=== PATIENT | female | born 1950 | race Caucasian/White ===

== ENCOUNTER → 2018-12-11 07:38 | Outpatient (CLI) | payer MEDICARE, SELFPAY ==
--- NOTE | 2018-12-11 | DI.MRI.S_ITS ---
PROCEDURE: MR LUMBAR SPINE WO CON INDICATIONS: Radiculopathy, lumbar region TECHNIQUE: Noncontrast sagittal T1 spin echo and T2 fast echo, sagittal STIR, axial T1 and T2 fast spin echo through the lumbar spine. In cases with scoliosis, additional coronal T2 fast spin echo may be performed. COMPARISON: None. FINDINGS: Image quality: Excellent. Alignment and Curvature: Moderate dextroconvex scoliotic curvature is seen. There is minimal retrolisthesis at L1-L2, minimal anterolisthesis at L2-L3, minimal retrolisthesis of L3-L4, and minimal retrolisthesis at L5-S1. Bone Marrow: Marrow is of normal overall signal. No acute vertebral body compression fractures. Spinal Cord: Conus medullaris terminates at the L1 level. Visualized cord demonstrates normal signal and size. Paraspinous Soft Tissues: No paravertebral masses. T12-L1: Moderate loss of disc height is seen. Loss of disc signal is seen. Mild to moderate disc bulge is seen. Mild facet joint hypertrophy is seen. There is moderate left-sided and mild right-sided neural foraminal narrowing seen. Mild central canal narrowing is seen. L1-L2: Moderate to severe loss of disc height and disc signal are seen on the left. Moderate generalized disc bulge is seen. [id number] facet hypertrophy is seen. There is moderate to severe left-sided and no significant right-sided neural foraminal narrowing seen. Mild central canal narrowing is seen. L2-L3: Mild loss of disc height is seen. Loss of disc signal is seen. Mild generalized disc bulge is seen. Moderate facet joint hypertrophy is seen. There is associated moderate hypertrophy of the ligamentum flavum. Moderate central canal narrowing is seen. This is exacerbated by the presence of prominent epidural fat. L3-L4: Moderate loss of disc height is seen. Loss of disc signal is seen. Moderate disc bulge is seen, which is eccentric to the left. There is mild to moderate left-sided and mild right-sided neural foraminal narrowing seen. Mild central canal narrowing is seen. L4-L5: Moderate loss of disc height is seen. Loss of disc signal is seen. Moderate to prominent disc bulge is seen, which is eccentric to the right. Moderate to prominent facet hypertrophy is seen. There is moderate left-sided and severe right-sided neural foraminal narrowing seen. There is impingement seen upon the exiting right L4 nerve root. Moderate central canal narrowing is seen. L5-S1: At least moderate loss of disc height and disc signal can be seen. Moderate generalized disc bulge is seen. Uioq-rf-[id number] facet hypertrophy is seen. There is at least moderate bilateral neural foraminal narrowing seen, left worse than right. There is a degree of impingement seen upon the exiting nerve roots. Minimal central canal narrowing is seen. IMPRESSION: Dextroconvex scoliosis and multiple levels of degenerative change are seen. The degenerative changes are overall most prominent at the L4-L5 level, where there is severe right-sided neural foraminal narrowing and associated nerve root impingement. Dictated by: Darwin Quan M.D. on 12/11/2018 at 10:41 Approved by: Darwin Quan M.D. on 12/11/2018 at 10:48
== END ==
PROVIDERS: Visit Provider Orthopaedic Surgery
DX: M47.26 Other spondylosis with radiculopathy, lumbar region (principal); M48.061 Spinal stenosis, lumbar region without neurogenic claudication; M41.9 Scoliosis, unspecified
CPT/HCPCS: 72148

== ENCOUNTER 2019-09-18 10:13 | Inpatient (IN) | payer MEDICARE, SELFPAY ==
[2019-09-05 10:04] VITALS: BMI 27.9
[2019-09-18] VITALS (13 sets, daily range): BP systolic 136–167; BP diastolic 76–87; PULSE 76–101; RESP 11–17; TEMP 36–36.9; O2SAT 94–99; BMI 27.9
--- NOTE | 2019-09-18 | DI.RAD.S_ITS ---
PROCEDURE: XR LUMBAR SPINE 2-3V INDICATIONS: L4-5, L5-S1 TLIF TECHNIQUE: 2 intraoperative fluoroscopic views of the lumbar spine were acquired. COMPARISON: None. FINDINGS: Intraoperative fluoroscopic images of lower lumbar spine shows transpedicular fusion at L4-S1 levels with intervertebral spacer placement at L4-5 and L5-S1 levels. IMPRESSION: Fluoroscopy guidance was provided intraoperatively for fusion of lower lumbar spine. Dictated by: Iain Rubi M.D. on 09/18/2019 at 17:31 Approved by: Iain Rubi M.D. on 09/18/2019 at 17:37
[2019-09-18] MEDS: LACTATED RINGERS 1,000 ML 42 ML IV ×2 (12:00→16:59)
--- NOTE | 2019-09-18 13:19 | PM.PREOP ---
Pre-operative Note Interval Note History & Physical reviewed/Exam performed by Physician: Yes Changes to H&P: No
[2019-09-18] MEDS: CEFAZOLIN 2 GM/100 ML FROZ.PIGGY IV ×2 (13:53→21:52)
--- NOTE | 2019-09-18 14:25 | SUR.OPER ---
Prone on spine table, head in foam head support, padded chest and pelvic supports, gel pad at knees, lower legs supported by pillows; nipples, genitalia and toes free of pressure, arms secured on foam padded arm boards at <90 degrees abduction. Tape over blanket at thigh secured to table.
[2019-09-18] MEDS: BUPIVACAINE LIPOSOME 266 MG/20 ML VIAL INJ (14:39)
[2019-09-18] MEDS: BUPIVACAINE 0.25% W/ EPI (PF) 10 ML VIAL 30 ML INJ (14:39)
--- NOTE | 2019-09-18 17:10 | P.OP_ITS ---
Operative Date/Time/Diagnoses Date of procedure: 09/18/19 Time of procedure: 14:10 Pre-op diagnosis: 1. L4-5, L5-S1 spinal stenosis 2. L4-5, L5-S1 spondylolisthesis 3. Lumbar scoliosis Post-op diagnosis: same Procedure & Clinicians Procedure: 1. L4-5, L5-S1 Postero-lateral and posterior interbody fusion 2. L4-5, L5-S1 interbody cage placement. 3. L4-5, L5-S1 decompressive laminectomy with bilateral facetecomies 4. L4-5, L5-S1 Posterior segmental instrumentation 5. Hermann of bone marrow from iliac crest 6. Utilization of microsurgical technique and operating microscope Same procedure as scheduled: Yes Indications: Patient has been having chronic back pain and worsening lumbar radiculopathy. Patient failed multiple conservative management with worsening pain weakness and numbness in her lower extremity. Patient has been having difficulty performing activity of daily living. After discussing risks benefits of treatment options, patient elected proceed with surgery. Surgeon: Amelia Cruz Digital Computer Systems Analyst: Mary Arnold Click Yes if Unassisted: No Operative Notes Closure Type: primary Specimen(s): none sent Prosthetic devices, grafts, tissues, transplants, or devices: Globus revolve screws, Rise cages Applied: catheter Estimated Blood Loss (mL): 75 Blood products transfused: none Procedure in detail: Patient was seen in the preoperative area. Risks and benefits of the surgery was discussed with the patient. Informed consent was obtained from the patient and placed in the chart. Surgical site was marked. Patient was taken to the operative room. General anesthesia was administered. Prophylactic antibiotic was given to the patient less than 30 min before the incision was made. Patient was placed into a prone position on the Sterling table. Patient's back was then prepped and draped in the sterile fashion. Time- out was performed at this time. Using AP and lateral C-arm imaging the interval between L4-S1 was identified and marked on patient's back. A 2 inch incision 2 in from midline was made on the right side first. The fascia was incised in line with skin incision. Globus MARS retractors was placed inside the incision and docked onto the L4 and L5 lamina. Using microsurgical technique and operating microscope, a L4 and L5 laminectomy and L4-5 L5-S1 facetectomy was performed using a Kerrison rongeur. During the process of decompression more than 75% of bilateral L4-5 L5-S1 facets were removed in order to decompress the spinal canal and the lateral recess. The L4-5 L5-S1 level was grossly unstable after the decompression was completed and requiring the fusion procedure. The disc space at L4-5, L5-S1 was identified. And a total diskectomy was performed at L4-5, L5-S1 level. The endplates were decorticated using a rasp and shaver. The total diskectomy and decortication was performed at L4-5, L5-S1 level in order to to accomplish a L4- 5, L5-S1 fusion. The local bone from the laminectomy and facetectomy was saved for local bone grafting. After the total diskectomy and decortication was completed, Bio4 bone graft material was combined with local bone that was harvested earlier. At this time, a separate skin is incision was made over the iliac crest. A Jamshidi needle was inserted into the iliac crest through a separate skin incision. 5 cc of bone marrow aspiration was obtained through the separate skin incision using a Jamshidi needle from the iliac crest. The bone marrow aspiration was combined with local bone and the Bio4 bone grafting material. The bone grafting material was placed into the L4-5, L5-S1 interbody space along with two cages, one expandable cage at each level. The cages were expanded to their maximum height using the torque limiting screwdriver. At this time a mirror image incision was made on the left side. The fascia was incised in line with the skin incision. Globus MARS retractor was inserted and docked onto the L4-5, L5-S1 posterolateral gutter. Using the power drill, posterior-lateral decortication was performed at L4-5, L5-S1 level until bleeding cortical bone was identified. The remaining bone grafting material was placed into the L4-5 L5-S1 posterior lateral gutter he order to accomplish posterolateral fusion at the L4-5 L5-S1 levels. Using the double C-arm technique, pedicle screws were placed into the L4, L5, S1 pedicles bilaterally. This was done by placing the Jamshidi needle into the pedicles, then placing the guidewires over the Jamshidi needle, and finally placing the cannulated screws over the guidewires bilaterally. After the pedicle screws were placed, 2 titanium rods was locked into the heads of the pedicle screws using locking caps and torque limiting screwdriver. Total 6 pedicles screws were placed. After all the hardware was placed, and confirmed with AP and lateral C-arm imaging, the wound was then irrigated with sterile normal saline and packed with Ray-Fili gauze for 3 min to accomplish hemostasis. After the gauze was removed the deep fascia was closed with #1 Vicryl suture. The subcutaneous layer was closed with 2-0 Vicryl. The skin was closed with skin giovanny. Patient tolerated the procedure well. There were no complications. Complications: none Post-operative Condition: stable Disposition: PACU Plan for aftercare: admit to inpatient hospital
[2019-09-18] MEDS: HYDROMORPHONE 2 MG INJ IV (17:37)
[2019-09-18] MEDS: SODIUM CHLORIDE 0.9% 1,000 ML 100 ML IV (19:00)
[2019-09-18] MEDS: ONDANSETRON 4 MG/2 ML INJ IV (19:00)
[2019-09-18] MEDS: HYDROMORPHONE 0.5 MG INJ IV (19:07)
[2019-09-18] MEDS: OXYCODONE IR 10 MG TABLET PO (21:52)
--- NOTE | 2019-09-19 00:21 | PC.NURSE ---
Shift note: Received patient from evening shift. At time of assessment patient became acutely nauseated and vomited 150ml clear emesis, had been requesting food just prior to episode. Patient had been nauseated and vomited on evening shift after dinner and again after pudding. Changed patient's gown and cleaned patient's hands and face of emesis and provided comfort. Educated patient on post-op nausea and assured her that it's not unexpected. Patient acknowledge teaching. Patient AxOx3, able to make needs known using call light, moderate fall risk, oden patent, on 2L O2 by NC, bed alarm on and functioning.
[2019-09-19] MEDS: OXYCODONE IR 10 MG TABLET PO (02:45)
[2019-09-19 03:28] VITALS: BP 141/69; PULSE 77; RESP 15; TEMP 36.7; O2SAT 96
[2019-09-19] MEDS: SODIUM CHLORIDE 0.9% 1,000 ML 100 ML IV (05:18)
[2019-09-19] MEDS: CEFAZOLIN 2 GM/100 ML FROZ.PIGGY IV (05:26)
[2019-09-19 05:38] LABS: Hematocrit 38.6 % (36-46)
[2019-09-19 08:48] VITALS: PULSE 90; O2SAT 94
[2019-09-19 08:53] VITALS: BP 121/69; PULSE 92; RESP 16; TEMP 37.2; O2SAT 94
[2019-09-19] MEDS: OXYCODONE IR 5 MG TABLET PO ×4 (09:19→20:08)
[2019-09-19] MEDS: DOCUSATE 100 MG CAPSULE PO ×2 (09:19→09:21)
--- NOTE | 2019-09-19 09:27 | PT.IIE ---
Current Diagnoses Other secondary scoliosis, lumbar region (09/18/19) Other spondylosis with radiculopathy, lumbosacral region (09/18/19) Spinal stenosis, lumbar region without neurogenic claudication (09/18/19) Surgery Performed Operation Date: 09/18/19 13:15 Actual Procedures p L4-5, L5-S1 TLIF w/ posterior instrumentation(Not Applicable) - Amelia Cruz MD Surgical History (Last Updated 09/05/19 @ 10:17 by Sandy Lackey RN) History of bunionectomy of both great toes (Acute) Hx of tonsillectomy (Acute) Medical History (Last Updated 09/05/19 @ 10:17 by Sandy Lackey RN) Acid reflux (Acute) Arthritis (Acute) Asthma (Acute) Back pain (Acute) Cysts (Acute) Easy bruisability (Acute) Jaw fracture (Acute) Sciatica (Acute) Physical Therapy Inpatient Evaluation/Re-Eval M1 PT/OT-IP Prior Functional Status Start: 09/19/19 11:35 Freq: NEEDED Status: Active Protocol: Document 09/19/19 09:27 AB (Rec: 09/19/19 11:50 AB [id number]) Medical Review Prior Functional Status Medical History Reviewed Yes Communication able to make needs known Mobility and Gait pt stated that she is independent with all mobilities and ambulation without AD Social History Household Members spouse Living Arrangements House Number of Floors (Floors) One Floor Number of Stairs To Enter/Railing? ramp to enter Home Environment Standard Height Toilet,Walk in Shower,Ramp Home Equipment Four Wheel Walker,Straight Cane,Long Handled Shoe Horn, Food Or Baggage Handling Rampman,Grab Bars In Shower Employment Status Retired M2 PT-IP Current Condition Start: 09/19/19 11:35 Freq: NEEDED Status: Active Protocol: Document 09/19/19 09:27 AB (Rec: 09/19/19 11:50 AB [id number]) Physical Therapy Current Condition Current Condition Evaluation Date 09/19/19 Treatment Diagnosis s/p L4-S1 posterior fusion/ lami; difficulty in walking Onset Date 09/18/2019 Precautions Lumbar Precautions Log Roll,No Twisting,Limit Bending,Lifting Restriction of 10 lbs,Gait Belt above Incisional Area M3 PT-IP Subjective Start: 09/19/19 11:35 Freq: NEEDED Status: Active Protocol: Document 09/19/19 09:27 AB (Rec: 09/19/19 11:50 AB [id number]) Subjective Physical Therapy Visit Type Type Initial Evaluation Visit Start Time 09:27 Visit Stop Time 10:12 Total Visit Minutes 45 Number of IMAGING CLERK Visits 0 Physical Therapy Visit Comments Patient Comments pt agreeable to do PT Therapy Pain Assessment Pain When Pain Assessed At Rest Pain Present Pain Present Pain Reported Location Tops of thighs Intensity 6 Scale Used Numeric (1 - 10) Pain Management Techniques Distraction,Timing of Activity with Medications M4 PT-IP Mobility and Gait Start: 09/19/19 11:35 Freq: NEEDED Status: Active Protocol: Document 09/19/19 09:27 AB (Rec: 09/19/19 11:50 AB [id number]) PT-Bed Mobility Assessment Rolling Type of Rolling Log Rolling Level of Assist Minimal Assistance Supine to Sit Supine to Sit Minimal Assistance PT-Transfer Assessment Sit to and From Stand Sit to and from Stand Minimal Assistance,1 Person Assistance,Use of Upper Extremities Equipment Transfer Assistive Device Gait Belt,Front Wheeled Walker Orthotic/Prosthetic Devices or Brace: No Transfers Transfer Destination Chair Transfer Technique ambulated using FWW Transfer Ability Level of Assist Minimal Assistance,1 Person Assistance,Use of Upper Extremities Comments Mobility Comments educated pt on back precautions and log roll bed mobility. completed supine to sit min A and cues. pt requires increase time to complete task. pt completed sit to stand min A and cues. pt ambulated towards the chair ~ 12 ft min A and cues. pt presents with increase posterior trunk leaning during standing requiring min A and cues for repostioning and safety. pt sat on chair and rested. completed sit <>stand x 2 reps CGA to min A and cues for techniques. postioned pt on chair. call light and table placed within reach. Gait Assessment Gait Gait Assistance Required: Minimum Assistance Distance (Feet) 12 Able to Maintain Weight Bearing Status Yes During Gait Assistive Devices Assistive Device Gait Belt,Front Wheeled Walker Orthotic/Prosthetic Devices or Brace: No Gait Deviations General Gait Pattern Antalgic,Decreased Stride Length,Decreased Feet Clearance,Step-to Gait Factors Limiting Gait Function Factors Limiting Gait Function Decreased Activity Tolerance, Decreased Sensation,Decreased Strength,Limited Range of Motion,Pain,Poor Balance,Poor Safety Awareness Comments Gait Comments presents with antalgic step to gait and increase posterior trunk leaning. requires cues for techniques and safety. PT-Balance Assessment Sitting Balance and Reactions Static Sitting Balance Ability Good Dynamic Sitting Balance Ability Good Standing Balance and Reactions Static Standing Balance Ability Fair Dynamic Standing Balance Ability Fair Device Used FWW M5 PT-IP Objective Assessments Start: 09/19/19 11:35 Freq: NEEDED Status: Active Protocol: Document 09/19/19 09:27 AB (Rec: 09/19/19 11:50 AB [id number]) Orientation Orientation/Cognition Level of Alertness Alert Orientation Name,Age,Birthday,Month,Date, Year,Day of Week,Place, Situation Language Function Ability No Deficits Noted Safety Awareness Decreased Safety Awareness Memory Description No Deficits Noted Gross Range of Motion Lower Extremity ROM Assessment Within Functional Limits Strength Lower Extremity Strength Assessment Right Impaired Hip 3+/5 Knee 3+/5 Coordination Assessment Gross Coordination Gross Coordination WNL Muscle Tone Muscle Tone WNL Yes M6 PT-IP Treatment Start: 09/19/19 11:35 Freq: NEEDED Status: Active Protocol: Document 09/19/19 09:27 AB (Rec: 09/19/19 11:50 AB [id number]) Physical Therapy Treatment Education Education Provided Precautions,Weight Bearing Status,Post-Op Packet,Safety M7 PT-IP Assessment and Plan Start: 09/19/19 11:35 Freq: NEEDED Status: Active Protocol: Document 09/19/19 09:27 AB (Rec: 09/19/19 11:50 AB [id number]) PT Summary Assessment and Plan Potential Rehabilitation Potential Good Status of Condition at Evaluation Stable Summary Impairments Pain,ROM,Strength,Balance, Coordination,Sensation,Bed Mobility,Transfers,Gait, Activity Tolerance Assessment Summary pt requiring min A with mobility but has decrease activity tolerance. pt plans to go home and spouse/grand daughter to assist her. will conduct caregiver training when appropriate. will continue to assess progress. informed pt regarding use of FWW and stated that they can borrow from the PT in Monday. Goals Bed Mobility Goal Standby Assistance Transfer Goal Standby Assistance,Front Wheeled Walker Gait Goal Standby Assistance,Front Wheel Walker Gait Distance 150 Days to Meet Goals 5 Frequency of Treatment Frequency Of Treatment Twice a Day Treatment Plan Physical Therapy Treatment Plan Bed Mobility Training,Transfer Training,Gait Training, Therapeutic Exercise,Balance Retraining,Post Op Education, Discharge Planning,Hot or Cold Pack,Neuromuscular Re-ed, Coordination Retraining,Manual Therapy Recommendations To Nursing Amount of Assist Needed 1 Person Assist Discharge Recommendations PT Discharge Recommendations Home with Assistance Equipment Needed for Home Before FWW Discharge
--- NOTE | 2019-09-19 10:05 | P.PN_ITS ---
Subjective Subjective Date Patient Seen: 09/19/19 Time Patient Seen: 10:06 Interval history: Patient is POD#1 s/p L4-5, L5-S1 TLIF with Dr. Cruz. Pain moderate overnight with acceptable response to medications. Patient had 10mg Oxycodone ordered however has had significant nausea with this dose in the past and would prefer to only take 5mg at a time. Did have several episodes of emesis overnight, has since tolerated a diet and currently denies nausea. Has not mobi lized yet with PT. No chest pain or shortness of breath. Exam Vital Signs (past 8 hours): - 09/19/19 03:28 09/19/19 08:48 09/19/19 08:53 Temperature 98.1 F 99.0 F Pulse Rate 77 90 92 H Respiratory Rate 15 16 Blood Pressure 141/69 H 121/69 Pulse Oximetry 96 94 94 Oxygen Delivery Method Room Air Oxygen Flow Rate 0 Narrative Exam Narrative: 69 year old female resting in bed. Alert and oriented in no acute distress. Dressing in place over lumbar spine is CDI. 5/5 BLE. Palpable pedal pulses. Calves soft and compressible. Objective Labs Result Diagrams: 09/19/19 05:26 Labs: Laboratory Results - last 24 hr 09/19/19 05:26 Hgb 13.0 Hct 38.6 Assessment & Plan Assessment & Plan narrative: Patient doing well post operatively. Medications orders adjusted to include 5mg Oxycodone Q3hrs. Mobilize with PT today. SCDs for DVT prophylaxis. Encouraged ankle pumps. Discontinue oden catheter. Patient lives in [place] [facility], will need ferry arranged. Likely discharge to home tomorrow. Quality VTE Deep Vein Thrombosis/Pulmonary Embolism Present on Admission: No
--- NOTE | 2019-09-19 10:19 | PC.NURSE ---
Addendum entered by Yesenia Pandey R.N. 09/19/19 12:02: Patients oden catheter taken out around 1100. Fluids have been heplocked. Pain medication given earlier for discomfort helpful. She will be due again at 1230. Original Note: Assess- Pt given 5mg of oxycodone before working with physical therapy. She just got up and is now sitting up in the chair. She is requesting for her oden catheter to come out, Will have my Student Nurse assist with this procedure. She then wants to get her underwear on and her pajama bottoms. Dressing to lower back is cdi, without any drainage. Denies nausea and was able to eat well at breakfast time. Visiting with her now.
--- NOTE | 2019-09-19 10:45 | CM.DANOTE ---
Discharge Planning/Care Management DCP: assessment: Advanced directive, confirm from FAMILY Start: 09/18/19 18:38 Freq: Q24H Status: Active Protocol: Document 09/18/19 18:38 AGW (Rec: 09/18/19 22:54 AGW [id number]) Advance Directive, confirm on record Time 20:00 Person contacted patient Copy received No CM Discharge Assessment Start: 09/19/19 10:44 Freq: Status: Active Protocol: Document 09/19/19 10:44 ITV (Rec: 09/19/19 10:45 ITV [id number]) Discharge Planning Assessment Advance Directives? Yes History Provided By Medical Record Prior Living Arrangements House Household Members spouse Is patient alert and oriented? Yes White-board Updated in Patient Room with Yes name and ext. # of Rack Pusher Review Status In Process Pre-Anesthesia Assessment Start: 09/05/19 10:04 Freq: Status: Active Protocol: Document 09/05/19 10:04 CAB (Rec: 09/05/19 10:45 CAB [id number]) Pre-Anesthesia Assessment Preferred Name Latasha Patient Information Reviewed Via Phone Assessment Assessment Completed With Patient Diagnostic Results BMP/CMP,CBC Comment Outside labs scanned to record Primary Care Provider Mauricio Russ Seen Specialist in Last 12 Months Yes Specialist Seen Orthopedist Primary Language Venezuelan Oil Change Technician Required No Height 162.56 cm Weight 73.936 kg Body Mass Index (BMI) 27.9 Hearing Ability Normal Visual Assist None Dentition Type Partial- Lower,Partial- Upper Barriers to Learning None Other Aids No Hx Anesthesia Reactions No Hx Family Anesthesia Reaction No Hx Malignant Hyperthermia No Hx Blood Transfusions No Anesthesia Review Requested No alcohol intake current alcohol intake frequency 0-2 drinks per day Smoking Status Former smoker Tobacco type cigarettes how long ago did patient quit smoking Quit 15 years ago Substance Use Type marijuana Comment Advised not to smoke marijuana 24 hours prior to sugery Pain Present Pain Reported Musculoskeletal Symptoms Abnormal Gait,Back Pain, Difficulty Walking,Muscle Cramps,Radiating Pain into Limb History of Falling (Recent or History of No ) Patient is completely paralyzed or No completely immobile Prosthesis or Orthotic Device Front Wheel Walker Mental Status Oriented to own ability Is patient on oxygen? No Does patient have PERRIN/SOB No Hx Sleep Apnea No Currently Taking a Beta Benjamin No Can You Climb a Flight of Stairs Without Yes SOB Hx Chest Pain No Hx SOB No Hx Syncope or Dizziness No Anti-Coagulant Therapy No Has a Spray Rig Operator No Cardiac Testing No Hx Pacemaker/ICD No Pacemaker Rep Required? No Cardiac Clearance Received Not Applicable Diet Type At Home Regular dysphagia No Urinary Catheter Present No Hx Urinary Self Catheterization No Diabetes No Patient No Lactating No Hx Drug Resistant Organism No Presence of External or Internal Medical Yes: Left jaw hardware Devices Have you traveled outside the [facility] in the last 30 days? Marital Status Lives With spouse Prior Living Arrangements House Number of Floors (Floors) One Floor Support System Child/Children,Spouse Does the Patient Have Assistance After Yes Surgery Patient Discharge Plan Description Return Home Comment Pt advised 2 day length of stay per surgeon Feels Safe in Current Environment Yes Been Physically Hurt or Threatened By a No Person in Current Environment Do you have thoughts of harming yourself None or others? Are you currently considering suicide? No Do you have a plan to hurt yourself or No Plan others? Do You Have Any Spiritual Beliefs That No May Affect Your HC Choices? Do You Have Any Cultural Practices That No May Affect Your HC Choices? Comment Denominational Who Can We Speak to About Patient's Care Family, friends Identifying Code for Release of Patient Declines to issue Information Health Care Proxy/Next of Kin Amos () Health Care Proxy [phone] Emergency Contact Name Amos () Emergency Contact [phone] Advance Directives? No Power of Retread Mold Operator No PAC Instructions Durable medical equipment, Medications to take/avoid, Nasal antibiotic,No ETOH/ petroleum product on skin DOS, NPO,Post-op transportation,Pre -surgical wash,Sturdy shoes/ comfortable clothes,Do not bring valuables and remove jewelry
--- NOTE | 2019-09-19 10:50 | CM.DANOTE ---
Addendum entered by Lauren Cherry LPN 09/19/19 11:08: Met with pt as planned. She is found up in a chair, says she has worked with PT this morning and feels she did well. She has a FWW that has been fitted to her in the car. Her is rooming in (although is not currently in the room during our conversation. Pt says she is feeling much better this morning after her post op nausea and vomiting that went all over the bed. All they did was sit me up to check my incision and it happened suddenly. She reports eating breakfast and is looking forward to going home tomorrow. Her oden catheter has been removed. She and Amos are hoping for the 2:10 PM ferry to [place] and will need priority board pass for same. Explained how this works, anticipate the [facility] will facilitate this and agreed to follow up tomorrow morning to make sure all in set up (pending the d/c order). Amos will be with her at home for the first 5 days but then has a business trip. Her 24 year old granddaughter who is in the medical profession will be arriving from [facility] and will stay with her for the next 5 days. Pt also says she has support for muslim and community friends and says she has no concerns re her d/c plan for home at this time. Spoke with sandra Holder who did see pt today. She confirms she expects pt to work more with therapy and to be ready for d/c tomorrow. Original Note: Discharge Planning/Care Management DCP: assessment: case received, EMR reviewed. Discussed in morning Team Rounds. Pt is a 69 year old female [facility] [place] [facility] She admitted yesterday for a planned spinal surgery: surgeon: Dr. Cruz PCP: Mauricio Russ Payer: Medicare Admission status: INPT: confirmed by SID RN. PT and OT are ordered. At time of Rounds pt had not had any therapy evals as she returned from PACU to acute care floor late yesterday. Sandra Holder saw pt today, noted her bouts of nausea and vomiting of last night and has decreased the dosing of her pain medication (also at pt's request). P: meet with pt for introduction of self and role and follow prn for any d/c needs that may arise. Pt's pre-op plan as per her discussion with the pre-op RN on 09/05 was identifies as home with spouse Amos's support. Advanced directive, confirm from FAMILY Start: 09/18/19 18:38 Freq: Q24H Status: Active Protocol: Document 09/18/19 18:38 AGW (Rec: 09/18/19 22:54 AGW [id number]) Advance Directive, confirm on record Time 20:00 Person contacted patient Copy received No CM Discharge Assessment Start: 09/19/19 10:44 Freq: Status: Active Protocol: Document 09/19/19 10:44 ITV (Rec: 09/19/19 10:45 ITV [id number]) Discharge Planning Assessment Advance Directives? Yes History Provided By Medical Record Prior Living Arrangements House Household Members spouse Is patient alert and oriented? Yes Whiteboard Updated in Patient Room with Yes name and ext. # of Central Sterilization Technician Review Status In Process Document 09/19/19 10:49 ITV (Rec: 09/19/19 10:49 ITV [id number]) Discharge Planning Assessment Advance Directives? Yes History Provided By Medical Record Prior Living Arrangements House Household Members spouse Is patient alert and oriented? Yes Whiteboard Updated in Patient Room with Yes name and ext. # of Central Sterilization Technician Review Status In Process Document 09/19/19 10:49 ITV (Rec: 09/19/19 10:49 ITV [id number]) Discharge Planning Assessment Advance Directives? Yes History Provided By Medical Record Prior Living Arrangements House Household Members spouse Is patient alert and oriented? Yes Whiteboard Updated in Patient Room with Yes name and ext. # of Central Sterilization Technician Review Status In Process Pre-Anesthesia Assessment Start: 09/05/19 10:04 Freq: Status: Active Protocol: Document 09/05/19 10:04 CAB (Rec: 09/05/19 10:45 CAB [id number]) Pre-Anesthesia Assessment Preferred Name Latasha Patient Information Reviewed Via Phone Assessment Assessment Completed With Patient Diagnostic Results BMP/CMP,CBC Comment Outside labs scanned to record Primary Care Provider Mauricio Russ Seen Specialist in Last 12 Months Yes Specialist Seen Orthopedist Primary Language Angolan Teen Counselor Required No Height 162.56 cm Weight 73.936 kg Body Mass Index (BMI) 27.9 Hearing Ability Normal Visual Assist None Dentition Type Partial- Lower,Partial- Upper Barriers to Learning None Other Aids No Hx Anesthesia Reactions No Hx Family Anesthesia Reaction No Hx Malignant Hyperthermia No Hx Blood Transfusions No Anesthesia Review Requested No alcohol intake current alcohol intake frequency 0-2 drinks per day Smoking Status Former smoker Tobacco type cigarettes how long ago did patient quit smoking Quit 15 years ago Substance Use Type marijuana Comment Advised not to smoke marijuana 24 hours prior to sugery Pain Present Pain Reported Musculoskeletal Symptoms Abnormal Gait,Back Pain, Difficulty Walking,Muscle Cramps,Radiating Pain into Limb History of Falling (Recent or History of No ) Patient is completely paralyzed or No completely immobile Prosthesis or Orthotic Device Front Wheel Walker Mental Status Oriented to own ability Is patient on oxygen? No Does patient have PERRIN/SOB No Hx Sleep Apnea No Currently Taking a Beta Benjamin No Can You Climb a Flight of Stairs Without Yes SOB Hx Chest Pain No Hx SOB No Hx Syncope or Dizziness No Anti-Coagulant Therapy No Has a Crossing Watchman No Cardiac Testing No Hx Pacemaker/ICD No Pacemaker Rep Required? No Cardiac Clearance Received Not Applicable Diet Type At Home Regular dysphagia No Urinary Catheter Present No Hx Urinary Self Catheterization No Diabetes No Patient No Lactating No Hx Drug Resistant Organism No Presence of External or Internal Medical Yes: Left jaw hardware Devices Have you traveled outside the [place] in the last 30 days? Marital Status Lives With spouse Prior Living Arrangements House Number of Floors (Floors) One Floor Support System Child/Children,Spouse Does the Patient Have Assistance After Yes Surgery Patient Discharge Plan Description Return Home Comment Pt advised 2 day length of stay per surgeon Feels Safe in Current Environment Yes Been Physically Hurt or Threatened By a No Person in Current Environment Do you have thoughts of harming yourself None or others? Are you currently considering suicide? No Do you have a plan to hurt yourself or No Plan others? Do You Have Any Spiritual Beliefs That No May Affect Your HC Choices? Do You Have Any Cultural Practices That No May Affect Your HC Choices? Comment Babak Who Can We Speak to About Patient's Care Family, friends Identifying Code for Release of Patient Declines to issue Information Health Care Proxy/Next of Kin Amos () Health Care Proxy [phone] Emergency Contact Name Amos () Emergency Contact [phone] Advance Directives? No Power of Linen Controller No PAC Instructions Durable medical equipment, Medications to take/avoid, Nasal antibiotic,No ETOH/ petroleum product on skin DOS, NPO,Post-op transportation,Pre -surgical wash,Sturdy shoes/ comfortable clothes,Do not bring valuables and remove jewelry
[2019-09-19 13:00] VITALS: BP 131/75; PULSE 91; RESP 14; TEMP 37; O2SAT 98
--- NOTE | 2019-09-19 14:15 | PT.IPTN ---
Current Diagnoses Other secondary scoliosis, lumbar region (09/18/19) Other spondylosis with radiculopathy, lumbosacral region (09/18/19) Spinal stenosis, lumbar region without neurogenic claudication (09/18/19) Surgery Performed Operation Date: 09/18/19 13:15 Actual Procedures p L4-5, L5-S1 TLIF w/ posterior instrumentation(Not Applicable) - Amelia Cruz MD Physical Therapy Treatment Note M2 PT-IP Current Condition Start: 09/19/19 11:35 Freq: NEEDED Status: Active Protocol: Document 09/19/19 09:27 AB (Rec: 09/19/19 11:50 AB [id number]) Physical Therapy Current Condition Current Condition Evaluation Date 09/19/19 Treatment Diagnosis s/p L4-S1 posterior fusion/ lami; difficulty in walking Onset Date 09/18/2019 Precautions Lumbar Precautions Log Roll,No Twisting,Limit Bending,Lifting Restriction of 10 lbs,Gait Belt above Incisional Area M3 PT-IP Subjective Start: 09/19/19 11:35 Freq: NEEDED Status: Active Protocol: Document 09/19/19 14:15 AB (Rec: 09/19/19 14:55 AB [id number]) Subjective Physical Therapy Visit Type Type Treatment Note Visit Start Time 14:15 Visit Stop Time 14:45 Total Visit Minutes 30 Number of DISK OPERATOR Visits 0 Physical Therapy Visit Comments Patient Comments pt requesting to use the toilet Therapy Pain Assessment Pain When Pain Assessed At Rest Pain Present Pain Present Pain Reported Location Tops of thighs Intensity 4 Scale Used Numeric (1 - 10) Pain Management Techniques Re-positioning,Timing of Activity with Medications M4 PT-IP Mobility and Gait Start: 09/19/19 11:35 Freq: NEEDED Status: Active Protocol: Document 09/19/19 14:15 AB (Rec: 09/19/19 14:55 AB [id number]) PT-Transfer Assessment Sit to and From Stand Sit to and from Stand Contact Guard Assistance Equipment Transfer Assistive Device Gait Belt,Front Wheeled Walker Orthotic/Prosthetic Devices or Brace: No Transfers Transfer Destination Toilet Transfer Technique ambulated using FWW Transfer Ability Level of Assist Contact Guard Assistance, Minimal Assistance,1 Person Assistance Comments Mobility Comments pt sitting up on EOB with NAC. PT took over. pt requesting to use the toilet and completed sit to stand CGA. Pt ambulated to the toilet using FWW CGA and cues for safety. pt completed hygiene care and pants management SBA. ambulated towards the sink using FWW CGA and was able to maintain standing SBA to CGA while completing handwashing. Caregiver training conducted with spouse. educated on how to use safety belt and how to assist pt. Spouse was able to put safety belt on. pt completed sit <>stand x 3 reps with cues for techniques. pt ambulated with spouse assisting. pt requested to sit up on chair afterwards. OT came in to see pt. Left pt with OT. Gait Assessment Gait Gait Assistance Required: Standby Assistance,Contact Guard Assist Distance (Feet) 100 Able to Maintain Weight Bearing Status Yes During Gait Assistive Devices Assistive Device Gait Belt,Front Wheeled Walker Orthotic/Prosthetic Devices or Brace: No Gait Deviations General Gait Pattern Antalgic,Decreased Stride Length,Decreased Feet Clearance Factors Limiting Gait Function Factors Limiting Gait Function Decreased Activity Tolerance, Decreased Strength,Limited Range of Motion,Pain,Poor Balance,Poor Safety Awareness M5 PT-IP Objective Assessments Start: 09/19/19 11:35 Freq: NEEDED Status: Active Protocol: Document 09/19/19 09:27 AB (Rec: 09/19/19 11:50 AB [id number]) Orientation Orientation/Cognition Level of Alertness Alert Orientation Name,Age,Birthday,Month,Date, Year,Day of Week,Place, Situation Language Function Ability No Deficits Noted Safety Awareness Decreased Safety Awareness Memory Description No Deficits Noted Gross Range of Motion Lower Extremity ROM Assessment Within Functional Limits Strength Lower Extremity Strength Assessment Right Impaired Hip 3+/5 Knee 3+/5 Coordination Assessment Gross Coordination Gross Coordination WNL Muscle Tone Muscle Tone WNL Yes M6 PT-IP Treatment Start: 09/19/19 11:35 Freq: NEEDED Status: Active Protocol: Document 09/19/19 14:15 AB (Rec: 09/19/19 14:55 AB [id number]) Physical Therapy Treatment Education Education Provided Precautions,Safety M7 PT-IP Assessment and Plan Start: 09/19/19 11:35 Freq: NEEDED Status: Active Protocol: Document 09/19/19 14:15 AB (Rec: 09/19/19 14:55 AB [id number]) PT Summary Assessment and Plan Potential Rehabilitation Potential Good Summary Impairments Pain,ROM,Strength,Balance, Coordination,Sensation,Bed Mobility,Transfers,Gait, Activity Tolerance Progress Towards Goals Slow Progress due to Pain,Slow Progress due to Activity Tolerance Assessment Summary caregiver training initiated and spouse was able to assist pt with sit to stand and ambulation using fWW. pt stated that she will be able to borrow a fWW. pt plans to go home and spouse to assist her. pt may go home when medically stable. Goals Bed Mobility Goal Standby Assistance Transfer Goal Standby Assistance,Front Wheeled Walker Gait Goal Standby Assistance,Front Wheel Walker Gait Distance 150 Days to Meet Goals 5 Frequency of Treatment Frequency Of Treatment Twice a Day Treatment Plan Physical Therapy Treatment Plan Bed Mobility Training,Transfer Training,Gait Training, Therapeutic Exercise,Balance Retraining,Post Op Education, Discharge Planning,Hot or Cold Pack,Neuromuscular Re-ed, Coordination Retraining,Manual Therapy Recommendations To Nursing Amount of Assist Needed 1 Person Assist Discharge Recommendations PT Discharge Recommendations Home with Assistance
--- NOTE | 2019-09-19 15:19 | OT.IP.EVAL ---
Current Diagnoses Other secondary scoliosis, lumbar region (09/18/19) Other spondylosis with radiculopathy, lumbosacral region (09/18/19) Spinal stenosis, lumbar region without neurogenic claudication (09/18/19) Surgery Performed Operation Date: 09/18/19 13:15 Actual Procedures p L4-5, L5-S1 TLIF w/ posterior instrumentation(Not Applicable) - Amelia Cruz MD Past Medical History (Last Updated 09/05/19 @ 10:17 by Sandy Lackey RN) Acid reflux (Acute) Arthritis (Acute) Asthma (Acute) Back pain (Acute) Cysts (Acute) Easy bruisability (Acute) Jaw fracture (Acute) Sciatica (Acute) Surgical History (Last Updated 09/05/19 @ 10:17 by Sandy Lackey RN) History of bunionectomy of both great toes (Acute) Hx of tonsillectomy (Acute) Occupational Therapy Inpatient Evaluation/Re-Eval M1 PT/OT-IP Prior Functional Status Start: 09/19/19 11:35 Freq: NEEDED Status: Active Protocol: Document 09/19/19 15:19 PJJay (Rec: 09/19/19 17:11 KOBE [id number]) Medical Review Prior Functional Status Medical History Reviewed Yes Diet/Fluid Consistency Regular Communication WNL Mobility and Gait Pt states that she is independent with ambulation without AD. Activities of Daily Living and IADL's Pt states she is independent with all self care, shares IADLS with including driving. Prior Functional Level (Other details) works days, but plans to take 5 days off work to assist pt. Then granddaughter with come from out of state to assist for 5 days. Social History Household Members spouse Living Arrangements House Number of Floors (Floors) One Floor Number of Stairs To Enter/Railing? ramp to enter Home Environment Standard Height Toilet,Walk in Shower Home Equipment Four Wheel Walker,Straight Cane,Shower Seat without Backrest,Grab Bars In Shower Employment Status Retired M2 OT-IP Current Condition Start: 09/19/19 13:53 Freq: Status: Active Protocol: Document 09/19/19 15:19 PJJay (Rec: 09/19/19 17:11 KOBE [id number]) Occupational Therapy Current Condition Current Condition Evaluation Date 09/19/19 Treatment Diagnosis decreased self care, mobility s/p L4-S1 TLIF Post Operative Precautions Lumbar Precautions Log Roll,No Twisting,Limit Bending,Lifting Restriction of 10 lbs,Gait Belt above Incisional Area M3 OT- IP Subjective and Pain Start: 09/19/19 13:53 Freq: Status: Active Protocol: Document 09/19/19 15:19 PJ (Rec: 09/19/19 17:11 [facility] [id number]) OT- Subjective Occupational Therapy Visit Type Type Initial Evaluation Visit Start Time 14:40 Visit Stop Time 15:19 Total Visit Minutes 39 Notes Supportive here for education this session. Occupational Therapy Visit Comments Patient/Caregiver Goals to go home, resume independence with self care, IADLS OT Pain Assessment Pain When Pain Assessed After Treatment Pain Present Pain Present Pain Reported Location Tops of thighs Intensity 6 Scale Used Numeric (1 - 10) Description Aching,Acute Pain Behaviors Guarding,Restlessness,Wincing Management Techniques Distraction,Re-positioning, Timing of Activity with Medications M4 OT- IP ADL's Start: 09/19/19 13:53 Freq: Status: Active Protocol: Document 09/19/19 15:19 PJ (Rec: 09/19/19 17:11 [facility] [id number]) OT [id number] General Evaluation Self-Feeding Ability Independent OT ADL-Grooming General Evaluation Grooming Ability Standby Assistance Areas Needing Assistance Face Washing Comments OT Grooming Comments seated in chair OT ADL-Oral Care Comments Oral Care Comments did not occur this session OT ADL-Dressing General Eval Upper Body Dressing Ability Standby Assistance Lower Body Dressing Ability Maximum Assistance Assistive Devices Dressing Assistive Devices Long Handled Shoe Horn,Sanitary Landfill Supervisor ,Sock Aid Comments OT Dressing Comments provided lower body dressing equipt and began education re: its use for lumbar spine precautions OT ADL-Toileting Comments OT Toileting Comments provided education re: body mechanics for surekha care OT ADL-Bathing Comments OT Bathing Comments provided education re: methods to keep incision dry and body mechanics M5 OT- IP IADL's Start: 09/19/19 13:53 Freq: Status: Active Protocol: Document 09/19/19 15:19 PJ (Rec: 09/19/19 17:11 [facility] [id number]) OT-Instrumental Activities of Daily Living Deficits IADL Deficits Identified Deficits Home Safety Awareness Awareness of Need for Assistance at Home Good Awareness Ability to Problem Solve Emergency Able to Problem Solve Situations Medication Management Medication Management No Deficits Identified Money Management Money Management No Deficits Identified Meal Preparation Meal Preparation Caregiver Provides Assist Meal Preparation Comments to assist until pt able Pinsetter Mechanic Automatic Pinsetter Mechanic Automatic Comments to assist until pt able Driving Driving Comments to assist until pt able M6 OT- IP Functional Cognition Start: 09/19/19 13:53 Freq: Status: Active Protocol: Document 09/19/19 15:19 PJ (Rec: 09/19/19 17:11 [facility] [id number]) Cognitive Factors Limiting Selfcare Function Cognitive Ability Level of Alertness Alert Patient Orientation Name,Age,Birthday,Month,Date, Year,Day of Week,Place, Situation Attention Span Ability Capable of Focused Attention, Capable of Sustained Attention Ability to Follow Commands Able to Follow One Step Commands Memory Description No Deficits Noted Cognitive Comments Cognitive Assessment Comments Pt mildly impulsive; moves quickly. OT- Vision and Hearing OT- Hearing Assessment OT- Hearing Assessment WFL OT- Vision Assessment Visual Acuity WFL,Glasses For Reading M7 OT- IP Mobility and Balance Start: 09/19/19 13:53 Freq: Status: Active Protocol: Document 09/19/19 15:19 PJ (Rec: 09/19/19 17:11 [facility] [id number]) OT-Transfer Assessment Comments Mobility Comments see P.T. notes, pt seen up in chair this session just after P.T. OT- Gait Assessment Comments Gait Ability Comments see P.T. notes OT- Balance Assessment Sitting Balance and Reactions Static Sitting Balance Ability Good Dynamic Sitting Balance Ability Good M8 OT- IP Objective Assessments Start: 09/19/19 13:53 Freq: Status: Active Protocol: Document 09/19/19 15:19 PJ (Rec: 09/19/19 17:11 [facility] [id number]) OT Gross Range of Motion Upper Extremity Range of Motion Assessment Within Functional Limits OT Strength Upper Extremity Strength Assessment Within Functional Limits OT- Coordination Assessment Comments Coordination Comments BUE WFL OT-Muscle Tone Assessment Muscle Tone WNL Yes OT Sensation Assessment Comments Summary Comments BUE WNL Edema Edema Absent M9 OT- IP Assessment and Plan Start: 09/19/19 13:53 Freq: Status: Active Protocol: Document 09/19/19 15:19 PJ (Rec: 09/19/19 17:11 [facility] [id number]) OT Summary Assessment and Plan Potential Rehabilitation Potential Good Analytic Complexity at Evaluation Low Summary OT Impairments Pain,Functional Mobility, Grooming,Dressing,Toileting, Bathing,Toilet Transfers, Shower Transfers Assessment Summary Low complexity OT assessment completed on this 69 yr old woman s/p L4-S1 TLIF. Began education with pt/ re: lumbar spine precautions, chair selection, posture, body mechanics, adapted ADL techniques and bathroom safety equipment options. Pt presents with performance deficits in functional . mobility/transfers, standing grooming, lower body dressing, bathing and toileting due to post op pain. Pt will benefit from 1 additional OT visit to address goals below. Anticipate pt will d/c home with 24 hr assist for family for first 10 days when medically stable and clears P.T.; possibly tomorrow. Goals Grooming Goal Independent Dressing Goal Standby Assistance,Long Handled Shoe Horn,Sanitary Landfill Supervisor,Sock Aid Toileting Goal Independent Bathing Goal Standby Assistance,Long Handled Sponge or [place] Toilet Transfer Goal Independent Shower Transfer Goal Contact Guard Assistance Patient/Caregiver Education Goal Demonstrate Post-Op Precautions,Demonstrate Energy Conservation and Pacing, Caregiver Independent Assisting Patient OT-Other Goals Grooming to be done standing at sink with good body mechanics and safety awareness Days to Meet Goals 2 Frequency of Treatment Frequency Of Treatment Once a Day Treatment Plan OT Treatment Plan ADL Training,Functional Mobility,Patient/Family Education,Discharge Planning Discharge Recommendations OT Discharge Recommendations Home with 24/7 Assist
[2019-09-19] MEDS: ACETAMINOPHEN 325 MG TABLET 650 MG PO (16:20)
[2019-09-19 20:06] VITALS: BP 145/74; PULSE 80; RESP 17; TEMP 37.4; O2SAT 93
--- NOTE | 2019-09-20 00:11 | PC.NURSE ---
2350 Checked pt. to do VS & assessment, but pt. & spouse were sound asleep. Will assess when pt. is awake 3-11 RN reported that pt. requested to let her sleep. Did not sleep well last night, will monitor.
[2019-09-20 02:05] VITALS: BP 152/77; PULSE 104; RESP 18; TEMP 36.8; O2SAT 90
[2019-09-20] MEDS: OXYCODONE IR 5 MG TABLET PO ×2 (02:13→06:52)
[2019-09-20 02:43] VITALS: O2SAT 92
[2019-09-20 06:20] VITALS: BP 129/69; PULSE 95; RESP 16; TEMP 36.9; O2SAT 92
--- NOTE | 2019-09-20 06:58 | PC.NURSE ---
Pt. up states my back is more painful just lying bed. Put on her own clothes, wash her face and brush her teeth. Pain level 3/10, medicated with 5 mg. of Percolone, will cont. POC & monitor.
--- NOTE | 2019-09-20 08:10 | P.DS_ITS ---
History of Present Illness History of Present Illness Date Patient Seen: 09/20/19 Time Patient Seen: 08:31 Chief complaint: [id number] Narrative: Please see HPI previously recorded in the chart. Discharge Providers Provider Date of admission: 09/18/19 10:13 Discharge Date: 09/20/19 Consults: 09/18/19 18:26 Consult to Occupational Therapy Evaluate & Treat Comment: Physician Instructions: Evaluate and treat Consult to Physical Therapy Evaluate & Treat Comment: Physician Instructions: Evaluate and Treat Discharge provider: Glory Siddiqui PA-C Summary Hospital Course Discharge Diagnosis: s/p L4-5, L5-S1 TLIF Hospital Course: Jordyn is a 69 year old female who has been having chronic back pain and worsening lumbar radiculopathy. She has been having difficulty performing activity of daily living. After discussing risks benefits of treatment options, patient elected proceed with surgery. After obtaining informed consent patient was taken to the operating room where she underwent a L4-5, L5-S1 TLIF with Dr. Cruz which she tolerated well. Afterwards she was taken to the acute care floor where she has been progressing well postoperatively. Pain has been well controlled with Oxycodone and Vistaril which she will be supplied with prior to discharge. Initially had some postoperative nausea and emesis which has resolved and she is tolerating a diet. She has mobilized with PT throughout her hospitalization. Rosen catheter removed , patient voided appropriately after removal. Dressing converted to a Coversite. Patient is stable for discharge to home later today. Status at Discharge Cognitive/behavioral status at discharge: oriented Functional status at discharge: uses cane/walker Overall status at discharge: patient is progressing back to baseline Exam Vital Signs (past 8 hours): - 09/20/19 02:05 09/20/19 02:43 09/20/19 06:20 Temperature 98.2 F 98.4 F Pulse Rate 104 H 95 H Respiratory Rate 18 16 Blood Pressure 152/77 H 129/69 Pulse Oximetry 90 L 92 92 Oxygen Delivery Method Room Air Oxygen Flow Rate 0 Narrative Exam Narrative: 69 year old female resting comfortably in the chair. Alert and oriented in no acute distress. Dressing in place over lumbar spine is CDI. 5/5 BLE. Calves soft, compressible bilaterally. Objective Labs Result Diagrams: 09/19/19 05:26 Discharge Plan Discharge Plan Patient Disposition: Home Discharge orders & Medications Prescriptions: New acetaminophen 325 mg Tablet 650 mg PO Q6HR PRN (Reason: Pain, Mild (1-3)) Qty: 40 RF: 0 docusate sodium [DOK] 100 mg Capsule 100 mg PO BID Qty: 40 RF: 0 oxycodone 5 mg Tablet 5 mg PO Q4-6H PRN (Reason: Pain, Moderate (4-6)) Qty: 60 RF: 0 hydroxyzine pamoate 25 mg Capsule 25 mg PO Q4HR PRN (Reason: Nausea And Vomiting) Qty: 60 RF: 0 Follow up/Referrals: Amelia Cruz MD [Physician] - (Follow up as scheduled in 2 weeks) Diet/Activity/Treatments Diet: Diet as Tolerated Activity: No bending, lifting, or twisting. Please use front wheel walker for fall prevention. Cold/Heat Therapy: Apply ice as needed. Allow skin to return to room temperature between icing. Skin/Wound/Dressing Care Report to your healthcare provider any signs of infection, such as:: chills, fever, night sweats, unusual drainage and unusual redness Dressing: Dressing is to remain in place until your 2 week post operative visit. If dressing becomes saturated or soiled please call the office. Visit Report/Discharge Packet Instructions: DI for Transforaminal Lumbar Interbody Fusion Quality VTE Deep Vein Thrombosis/Pulmonary Embolism Present on Admission: No
[2019-09-20] MEDS: DOCUSATE 100 MG CAPSULE PO (08:29)
--- NOTE | 2019-09-20 08:31 | CM.DPC ---
DCP: continued: Pt has been ok'd for d/c to home setting. Checked in with YOLANDA Narvaez as well as ELENA jones the priority board pass for the to [place]: [phone]. PB is being faxed in now and Patient copy will be given to pt and her . Pt is updated.
--- NOTE | 2019-09-20 09:19 | OT.IP.TRT ---
Current Diagnoses Other secondary scoliosis, lumbar region (09/18/19) Other spondylosis with radiculopathy, lumbosacral region (09/18/19) Spinal stenosis, lumbar region without neurogenic claudication (09/18/19) Surgery Performed Operation Date: 09/18/19 13:15 Actual Procedures p L4-5, L5-S1 TLIF w/ posterior instrumentation(Not Applicable) - Amelia Cruz MD Occupational Therapy Treatment Note M2 OT-IP Current Condition Start: 09/19/19 13:53 Freq: Status: Active Protocol: Document 09/19/19 15:19 PJ (Rec: 09/19/19 17:[address] [facility] [id number]) Occupational Therapy Current Condition Current Condition Evaluation Date 09/19/19 Treatment Diagnosis decreased self care, mobility s/p L4-S1 TLIF Post Operative Precautions Lumbar Precautions Log Roll,No Twisting,Limit Bending,Lifting Restriction of 10 lbs,Gait Belt above Incisional Area M3 OT- IP Subjective and Pain Start: 09/19/19 13:53 Freq: Status: Active Protocol: Document 09/20/19 10:53 [facility] (Rec: 09/20/19 10:58 [facility] [id number]) OT- Subjective Occupational Therapy Visit Type Type Treatment Note Visit Start Time 09:19 Visit Stop Time 09:27 Total Visit Minutes 8 Occupational Therapy Visit Comments Patient Comments Pt not wanting to shower but had questions for needs. OT Pain Assessment Pain When Pain Assessed At Rest Pain Present Pain Present Denied Pain M4 OT- IP ADL's Start: 09/19/19 13:53 Freq: Status: Active Protocol: Document 09/20/19 10:53 [facility] (Rec: 09/20/19 10:58 [facility] [id number]) OT ADL-Dressing Comments OT Dressing Comments Pt's has good understanding to be able to assist for all ADl's, in addition someone will always be there to assist the pt. M5 OT- IP IADL's Start: 09/19/19 13:53 Freq: Status: Active Protocol: Document 09/19/19 15:19 PJ (Rec: 09/19/19 17:[address] [facility] [id number]) OT-Instrumental Activities of Daily Living Deficits IADL Deficits Identified Deficits Home Safety Awareness Awareness of Need for Assistance at Home Good Awareness Ability to Problem Solve Emergency Able to Problem Solve Situations Medication Management Medication Management No Deficits Identified Money Management Money Management No Deficits Identified Meal Preparation Meal Preparation Caregiver Provides Assist Meal Preparation Comments to assist until pt able Ethyl Blender Ethyl Blender Comments to assist until pt able Driving Driving Comments to assist until pt able M6 OT- IP Functional Cognition Start: 09/19/19 13:53 Freq: Status: Active Protocol: Document 09/19/19 15:19 [facility] (Rec: 09/19/19 17:11 [facility] [id number]) Cognitive Factors Limiting Selfcare Function Cognitive Ability Level of Alertness Alert Patient Orientation Name,Age,Birthday,Month,Date, Year,Day of Week,Place, Situation Attention Span Ability Capable of Focused Attention, Capable of Sustained Attention Ability to Follow Commands Able to Follow One Step Commands Memory Description No Deficits Noted Cognitive Comments Cognitive Assessment Comments Pt mildly impulsive; moves quickly. OT- Vision and Hearing OT- Hearing Assessment OT- Hearing Assessment WFL OT- Vision Assessment Visual Acuity WFL,Glasses For Reading M7 OT- IP Mobility and Balance Start: 09/19/19 13:53 Freq: Status: Active Protocol: Document 09/20/19 10:53 [facility] (Rec: 09/20/19 10:58 [facility] [id number]) OT-Transfer Assessment Comments Mobility Comments SBA with FWW, pt still needing cues to slow down and adhere to back precautions. Educated pt's and for car transfers as pt has a low car. M8 OT- IP Objective Assessments Start: 09/19/19 13:53 Freq: Status: Active Protocol: Document 09/19/19 15:19 [facility] (Rec: 09/19/19 17:11 [facility] [id number]) OT Gross Range of Motion Upper Extremity Range of Motion Assessment Within Functional Limits OT Strength Upper Extremity Strength Assessment Within Functional Limits OT- Coordination Assessment Comments Coordination Comments BUE WFL OT-Muscle Tone Assessment Muscle Tone WNL Yes OT Sensation Assessment Comments Summary Comments BUE WNL Edema Edema Absent M9 OT- IP Assessment and Plan Start: 09/19/19 13:53 Freq: Status: Active Protocol: Document 09/20/19 10:53 [facility] (Rec: 09/20/19 10:58 [facility] [id number]) OT Summary Assessment and Plan Potential Rehabilitation Potential Good Analytic Complexity at Evaluation Low Summary Progress Towards Goals Progressing Toward Goals Assessment Summary Pt looking to go home today and able to states good understanding to be able to assist pt for all needs. Pt was able to get a hold of a friend for FWW. In addition to borrow a shower chair, versaframe and tubrail. Goals Days to Meet Goals 1 Frequency of Treatment Frequency Of Treatment Once a Day Discharge Recommendations OT Discharge Recommendations Home with 27/03 Assist Home Equipment Needs FWW, shower seat, versaframe, tubrail
--- NOTE | 2019-09-20 09:27 | PT.IPTN ---
Current Diagnoses Other secondary scoliosis, lumbar region (09/18/19) Other spondylosis with radiculopathy, lumbosacral region (09/18/19) Spinal stenosis, lumbar region without neurogenic claudication (09/18/19) Surgery Performed Operation Date: 09/18/19 13:15 Actual Procedures p L4-5, L5-S1 TLIF w/ posterior instrumentation(Not Applicable) - Amelia Cruz MD Physical Therapy Treatment Note M2 PT-IP Current Condition Start: 09/19/19 11:35 Freq: NEEDED Status: Active Protocol: Document 09/19/19 09:27 AB (Rec: 09/19/19 11:50 AB [id number]) Physical Therapy Current Condition Current Condition Evaluation Date 09/19/19 Treatment Diagnosis s/p L4-S1 posterior fusion/ lami; difficulty in walking Onset Date 09/18/2019 Precautions Lumbar Precautions Log Roll,No Twisting,Limit Bending,Lifting Restriction of 10 lbs,Gait Belt above Incisional Area M3 PT-IP Subjective Start: 09/19/19 11:35 Freq: NEEDED Status: Active Protocol: Document 09/20/19 09:27 AB (Rec: 09/20/19 10:46 AB [id number]) Subjective Physical Therapy Visit Type Type Treatment Note Visit Start Time 09:27 Visit Stop Time 09:46 Total Visit Minutes 19 Number of DIRECTOR WORKFORCE MANAGEMENT Visits 0 Physical Therapy Visit Comments Patient Comments pt agreeable to do PT Therapy Pain Assessment Pain When Pain Assessed At Rest Pain Present Pain Present Pain Reported Location lower back Intensity 2 Scale Used Numeric (1 - 10) Pain Management Techniques Timing of Activity with Medications M4 PT-IP Mobility and Gait Start: 09/19/19 11:35 Freq: NEEDED Status: Active Protocol: Document 09/20/19 09:27 AB (Rec: 09/20/19 10:46 AB [id number]) PT-Bed Mobility Assessment Rolling Type of Rolling Log Rolling Level of Assist Standby Assistance Supine to Sit Supine to Sit Standby Assistance Sit to Supine Sit to Supine Standby Assistance Scooting Scooting to Edge of Bed Standby Assistance PT-Transfer Assessment Sit to and From Stand Sit to and from Stand Standby Assistance,1 Person Assistance,Use of Upper Extremities Equipment Transfer Assistive Device Gait Belt,Front Wheeled Walker Orthotic/Prosthetic Devices or Brace: No Transfers Transfer Destination Bed Transfer Technique ambulated using FWW Transfer Ability Level of Assist Standby Assistance,1 Person Assistance,Use of Upper Extremities Comments Mobility Comments pt sitting on chair. confirmed FWW for home use and initially was not able to contact the person they can borrow FWW from but eventually was able to and pt will corn picker FWW upon d/c. Spouse in room and was able to put safety belt on pt and cue pt as needed. pt completed ambulation chair to bed using FWW SBA. completed sit <> supine SBA. pt able to maintain precautions. pt ambulated farther in the hallway and completed ~ 125 ft SBA using FWW. pt requested to use the toilet and ambulated to the toilet using FWW. left pt with spouse. instructed to ask for assistance and agreed. Gait Assessment Gait Gait Assistance Required: Standby Assistance Distance (Feet) 125 Able to Maintain Weight Bearing Status Yes During Gait Assistive Devices Assistive Device Gait Belt,Front Wheeled Walker Orthotic/Prosthetic Devices or Brace: No Gait Deviations General Gait Pattern Antalgic,Decreased Stride Length,Decreased Feet Clearance Factors Limiting Gait Function Factors Limiting Gait Function Decreased Activity Tolerance, Decreased Strength,Limited Range of Motion,Pain,Poor Balance,Poor Safety Awareness Comments Gait Comments pls refer to mobility section for details M5 PT-IP Objective Assessments Start: 09/19/19 11:35 Freq: NEEDED Status: Active Protocol: Document 09/19/19 09:27 AB (Rec: 09/19/19 11:50 AB [id number]) Orientation Orientation/Cognition Level of Alertness Alert Orientation Name,Age,Birthday,Month,Date, Year,Day of Week,Place, Situation Language Function Ability No Deficits Noted Safety Awareness Decreased Safety Awareness Memory Description No Deficits Noted Gross Range of Motion Lower Extremity ROM Assessment Within Functional Limits Strength Lower Extremity Strength Assessment Right Impaired Hip 3+/5 Knee 3+/5 Coordination Assessment Gross Coordination Gross Coordination WNL Muscle Tone Muscle Tone WNL Yes M6 PT-IP Treatment Start: 09/19/19 11:35 Freq: NEEDED Status: Active Protocol: Document 09/20/19 09:27 AB (Rec: 09/20/19 10:46 AB [id number]) Physical Therapy Treatment Education Education Provided Precautions,Safety M7 PT-IP Assessment and Plan Start: 09/19/19 11:35 Freq: NEEDED Status: Active Protocol: Document 09/20/19 09:27 AB (Rec: 09/20/19 10:46 AB [id number]) PT Summary Assessment and Plan Potential Rehabilitation Potential Good Summary Impairments Pain,ROM,Strength,Balance, Coordination,Sensation,Tone, Cognition,Bed Mobility, Transfers,Gait,Activity Tolerance Progress Towards Goals Progressing Toward Goals Assessment Summary pt progressing with mobility. pt plans to go home later today and spouse alonzo be able to assist pt. caregiver training conducted yesterday and today and spouse was able to assist pt safely. pt may go home when stable. Goals Bed Mobility Goal Standby Assistance Transfer Goal Standby Assistance,Front Wheeled Walker Gait Goal Standby Assistance,Front Wheel Walker Gait Distance 150 Days to Meet Goals 5 Frequency of Treatment Frequency Of Treatment Twice a Day Treatment Plan Physical Therapy Treatment Plan Bed Mobility Training,Transfer Training,Gait Training, Therapeutic Exercise,Balance Retraining,Post Op Education, Discharge Planning,Hot or Cold Pack,Neuromuscular Re-ed, Coordination Retraining,Manual Therapy Recommendations To Nursing Amount of Assist Needed 1 Person Assist Discharge Recommendations PT Discharge Recommendations Home with Assistance
[2019-09-20 10:10] VITALS: BP 134/72; PULSE 88; RESP 16; TEMP 36.7; O2SAT 95
--- NOTE | 2019-09-20 11:46 | PC.NURSE ---
Pt is going to be discharging home today and dressing will be changed prior to leaving and iv out. She will be taking a ferry to [place] and already has her ferry pass. Scripts given to and he has already filled them.. Will medicate her before she leaves.
== END 2019-09-20 13:03 | disposition home or self-care (01) | DRG 455 ==
PROVIDERS: Admitting Provider Orthopaedic Surgery Orthopaedic Surgery of the Spine; Visit Provider Orthopaedic Surgery Orthopaedic Surgery of the Spine
PROC: 0SG00AJ Fusion of Lumbar Vertebral Joint with Interbody Fusion Device, Posterior Approach, Anterior Column, Open Approach (ICD-10-PCS; principal; 2019-09-18 13:15)
DX: M48.061 Spinal stenosis, lumbar region without neurogenic claudication (principal); M54.16 Radiculopathy, lumbar region; M41.56 Other secondary scoliosis, lumbar region; M48.07 Spinal stenosis, lumbosacral region; M43.17 Spondylolisthesis, lumbosacral region; R11.2 Nausea with vomiting, unspecified
CPT/HCPCS: 36415; 72100; 76000; 85014; 85018; 94762; 97116; 97161; 97165; 97530; 97535; C1776; C9290; J0330; J0690; J1100; J1170; J2250; J2405; J2704; J3010

== ENCOUNTER → 2020-11-24 11:22 | Outpatient (CLI) | payer MEDICARE, SELFPAY ==
[2019-09-18 10:43] VITALS: BMI 27.9
--- NOTE | 2020-11-24 11:26 | DI.CT.S_ITS ---
PROCEDURE: CT LUMBAR SPINE WO CON INDICATIONS: Spinal stenosis, lumbar region without neurogenic TECHNIQUE: Noncontrast 3 mm thick sections acquired from the T12 level to the sacrum. Sagittal and coronal reformats were constructed. For radiation dose reduction, the following was used: automated exposure control. COMPARISON: [facility], MR, MR LUMBAR SPINE WO CON, 12/11/2018, 8:48. [facility] [place], CR, XR LUMBAR SPINE 2 OR 3 VIEWS, 03/03/2020, 9:46. [facility] [place], CR, XR LUMBAR SPINE FLEXION EXTENSION, 10/31/2019, 10:31. [facility], CR, XR LUMBAR SPINE 2-3V, 09/18/2019, 16:00. FINDINGS: Image quality: Excellent. Bones: No acute vertebral body compression fractures. No suspicious lytic or blastic bony lesions. No pars defects. Postoperative changes are seen, with bilateral pedicle screws at the L4, L5, and S1 levels. The screws appear well placed. Vertical fixation rods are seen. Disc spacers are seen at L4-L5 and L5-S1. No findings of hardware failure or hardware loosening are seen. There has been removal of portions of the posterior elements. Bone grafting material is noted. Moderate dextroconvex scoliosis is seen. T11-T12: Moderate to severe loss of disc height is seen. Endplate irregularity and sclerosis can be seen. Vacuum disc phenomenon is seen at this level. Partially bridging endplate osteophytes are seen. Mild to moderate bilateral neural foraminal narrowing can be seen. No significant central canal narrowing is seen. T12-L1: Moderate loss of disc height is seen. Mild to moderate disc bulge is seen. There is mild facet hypertrophy seen at this level. There is at least moderate left-sided and no right-sided neural foraminal narrowing seen. No significant central canal narrowing is seen. L1-L2: Moderate to severe loss of disc height is seen on the left side. Endplate irregularity and sclerosis are seen, which are more prominent on the left. Bridging endplate osteophytes are seen on the left. There is mild right-sided and [id number] left-sided facet hypertrophy seen. There is moderate to severe left-sided and no significant right-sided neural foraminal narrowing seen. L2-L3: There is mild loss of disc height. Mild to moderate disc bulge is seen. There is pdei-ep-spceifft right-sided and prominent left-sided facet hypertrophy seen. Mild bilateral neural foraminal narrowing is seen. Moderate central canal narrowing is seen. L3-L4: At least moderate loss of disc height can be seen. Vacuum disc phenomenon is seen at this level. Endplate irregularity and sclerosis can be seen. At least partially bridging endplate osteophytes can be seen on the left side. Mild facet joint hypertrophy is seen. Moderate bilateral neural foraminal narrowing is seen. Moderate central canal narrowing is seen. These imaging findings have progressed compared to the prior study. L4-L5: Postoperative changes are seen at this level. Bridging endplate osteophytes are seen on the right side. There is moderate right-sided and no left-sided neural foraminal narrowing seen. Mild central canal narrowing is seen. This level is improved compared to the prior examination. L5-S1: There are postoperative changes at this level. Moderate disc bulge is seen, which is eccentric to the right. There is at least moderate left-sided and mild right-sided neural foraminal narrowing seen. Mild central canal narrowing is seen. The degree of right-sided neural foraminal narrowing is clearly improved compared to the preoperative MRI. Soft tissues: No retroperitoneal masses or hematomas. Visualized aorta is normal in caliber. Atherosclerotic calcification is noted. Colonic diverticulosis is seen, without findings of active diverticulitis. IMPRESSION: Unremarkable L4 through S1 postoperative hardware. Improvement in degrees of narrowing at L4-L5 and L5-S1 compared to the preoperative MRI. Moderate dextroconvex scoliosis, with associated degenerative changes. Dictated by: Darwin Quan M.D. on 11/24/2020 at 11:10 Approved by: Darwin Quan M.D. on 11/24/2020 at 11:17
== END ==
PROVIDERS: PCP Family Medicine; Referring Provider Orthopaedic Surgery Orthopaedic Surgery of the Spine; Visit Provider Orthopaedic Surgery Orthopaedic Surgery of the Spine
DX: M48.061 Spinal stenosis, lumbar region without neurogenic claudication (principal); M48.07 Spinal stenosis, lumbosacral region; M41.86 Other forms of scoliosis, lumbar region; Z98.1 Arthrodesis status
CPT/HCPCS: 72131

== ENCOUNTER → 2025-07-05 09:44 | Outpatient (CLI) | payer MEDICARE, SELFPAY ==
[2019-09-18 10:43] VITALS: BMI 27.9
--- NOTE | 2025-07-05 09:46 | DI.CT.S_ITS ---
PROCEDURE: CT ANGIO HEAD INDICATIONS: visual disturbance, paresthesia of skin TECHNIQUE: Precontrast 4.5 mm thick angled axial sections acquired from the foramen magnum to the vertex. After the administration of intravenous contrast, 1 mm thick sections acquired through the [place] of [place]. Postcontrast 4.5 mm thick sections then re- acquired from the foramen magnum to the vertex. 10 mm thick axejtbb-yemlqjgvj-[id number] (MIP) reformats were acquired of the central intracranial vasculature. For radiation dose reduction, the following was used: automated exposure control, adjustment of mA and/or kV according to patient size. COMPARISON: None. FINDINGS: Image quality: Diagnostic. Anterior circulation: Intracranial internal carotid arteries are normal in size and flow. The flow within the paired anterior cerebral arteries is normal and symmetric. The flow within the middle cerebral arteries is normal and symmetric. The anterior communicating artery is seen. No aneurysms are seen. Posterior circulation: Visualized portions of the vertebral arteries demonstrate normal caliber, and join to form a normal appearing basilar artery. Slight left vertebral artery prominence. Flow within the posterior cerebral arteries is normal and symmetric. No aneurysms are seen. CSF spaces: Ventricles are normal in size and shape. Basal cisterns are patent. No extra-axial fluid collections. Brain: No midline shift. No intracranial bleeds or masses. [place]-white matter interface appears intact. Skull and face: Calvarium and facial bones appear intact, without suspicious lesions. Sinuses: Visualized sinuses and mastoids are clear. IMPRESSION: No areas of hemodynamically significant stenosis, vascular occlusion or aneurysmal dilation within the anterior circulation. No areas of hemodynamically significant stenosis, vascular occlusion or aneurysmal dilation within the posterior circulation. Dictated by: Adelaida Cornelius M.D. on 07/07/2025 at 9:21 Approved by: Adelaida Cornelius M.D. on 07/07/2025 at 9:35
[2025-07-05 10:21] LABS: Estimated Glomerular Filt Rate > 60 mL/min (>60)
== END ==
LOC: CT 09:45
PROVIDERS: Radiology Diagnostic Radiology; PCP Physician Assistant; Referring Provider Physician Assistant; Visit Provider Physician Assistant
DX: H53.9 Unspecified visual disturbance (principal); R20.2 Paresthesia of skin
CPT/HCPCS: 36415; 70496; 82565; Q9967